=== PATIENT | male | born 1965 | race African-American/Black ===

== ENCOUNTER 2016-11-26 08:01 | Emergency (ER) | payer BC ==
[2015-05-05 13:36] VITALS: BMI 32.2
[~2016-11-26 08:01] MED LIST: NEXIUM40 MG PO
[2016-11-26 08:56] LABS: BASOPHILS 0.2 % (0.0-2.0); EOSINOPHILS 0.1 % (0-7); HEMATOCRIT 48.4 % (42.0-54.0); HEMOGLOBIN 16.8 g/dL (13.5-17.5); IMMATURE GRANULOCYTES 0.1 % (0-5); LYMPHOCYTES 21.2 % (15-50); MCH 28.7 pg (26.0-34.0); MCHC 34.7 g/dL (31.0-37.0); MCV 82.6 fL (80.0-100.0); MEAN PLATELET VOLUME 10.3 fL (7.4-10.4); MONOCYTES 9.3 % (2-11); NEUTROPHILS 69.1 % (40-80); RBC 5.86 10x6/uL (4.20-6.10); RDW 14.2 % (11.5-14.5); WBC 8.5 10x3/uL (4.8-10.8)
[2016-11-26 09:10] LABS: PLATELET COUNT 332 10x3/uL (130-400)
[2016-11-26 10:15] LABS: ALBUMIN 3.6 g/dL (3.4-5.0); ALKALINE PHOSPHATASE 75 U/L (46-116); CALC OSMOLALITY 262 mosm/kg (275-300); CALCIUM 8.9 mg/dL (8.5-10.1); CARBON DIOXIDE 24.8 mmol/L (21.0-32.0); CHLORIDE - SERUM 95 mmol/L (98-107); GLUCOSE 110 mg/dL (74-106); LIPASE 16 U/L (73-393); PROTEIN - SERUM 9.8 g/dL (6.4-8.2); SODIUM 127 mmol/L (136-145); UREA NITROGEN 33 mg/dL (7-18); eGFR NON AFRICAN AMERICAN 84 mL/min (90-120)
[2016-11-26 10:27] LABS: APPEARANCE CLEAR (CLEAR); BILIRUBIN NEGATIVE (NEGATIVE); COLOR YELLOW (YELLOW); GLUCOSE NEGATIVE (NEGATIVE); KETONE MODERATE mg/dL (NEGATIVE); LEUKOCYTE ESTERASE NEGATIVE (NEGATIVE); NITRITE NEGATIVE (NEGATIVE); PROTEIN 1+ mg/dL (NEGATIVE); SPECIFIC GRAVITY 1.005 (1.005-1.020); UROBILINOGEN NORMAL (NORMAL)
[2016-11-26 10:28] LABS: BACTERIA FEW /hpf (NONE SEEN); EPITHELIAL CELLS OCC /hpf (0-5); MUCUS <1+ /lpf (NONE SEEN); RED CELLS - URINE OCC /hpf (0-5); WHITE CELLS - URINE 0-5 /hpf (0-5)
[2016-11-26 10:33] LABS: ALT (SGPT) 19 U/L (10-68); BILIRUBIN - TOTAL 0.59 mg/dL (0.2-1.3)
== END 2016-11-26 13:31 | disposition home or self-care (01) ==
LOC: D.ER 08:01
PROVIDERS: Emergency Medicine
DX: R10.13 Epigastric pain (principal); R11.10 Vomiting, unspecified; I10 Essential (primary) hypertension; K21.9 Gastro-esophageal reflux disease without esophagitis

== ENCOUNTER 2017-05-07 16:00 | Emergency (ER) | payer BC ==
[2015-05-05 13:36] VITALS: BMI 32.2
[2017-05-07 17:00] LABS: BASOPHILS 0.2 % (0-2); EOSINOPHILS 0.1 % (0-7); HEMATOCRIT 50.2 % (42.0-54.0); HEMOGLOBIN 17.3 g/dL (13.5-17.5); IMMATURE GRANULOCYTES 0.3 % (0-5); LYMPHOCYTES 14.2 % (15-50); MCH 29.2 pg (26.0-34.0); MCHC 34.5 g/dL (31.0-37.0); MCV 84.7 fL (80.0-100.0); MEAN PLATELET VOLUME 10.3 fL (7.4-10.4); MONOCYTES 8.3 % (2-11); NEUTROPHILS 76.9 % (40-80); RBC 5.93 10x6/uL (4.20-6.10); WBC 12.4 10x3/uL (4.8-10.8)
[2017-05-07 17:01] LABS: PLATELET COUNT 256 10x3/uL (130-400)
[2017-05-07 17:26] LABS: AMYLASE - SERUM 63 U/L (25-115); LIPASE 121 U/L (73-393)
[2017-05-07 18:08] LABS: ALBUMIN 4.3 g/dL (3.4-5.0); ANION GAP 16.6 mmol/L (8-16); BILIRUBIN - TOTAL 0.59 mg/dL (0.2-1.3); CARBON DIOXIDE 25.3 mmol/L (21.0-32.0); CREATININE - SERUM 1.8 mg/dL (0.6-1.3); POTASSIUM - SERUM 3.9 mmol/L (3.5-5.1); PROTEIN - SERUM 9.4 g/dL (6.4-8.2)
== END 2017-05-07 20:45 | disposition home or self-care (01) ==
LOC: D.ER 16:00
PROVIDERS: Emergency Medicine; Nurse Practitioner Acute Care
DX: R10.9 Unspecified abdominal pain (principal); K21.9 Gastro-esophageal reflux disease without esophagitis; F17.200 Nicotine dependence, unspecified, uncomplicated

== ENCOUNTER 2017-05-08 08:46 | Emergency (ER) | payer BC ==
[2015-05-05 13:36] VITALS: BMI 32.2
[2017-05-08 10:58] LABS: ALBUMIN 3.8 g/dL (3.4-5.0); ANION GAP 8.8 mmol/L (8-16); BILIRUBIN - TOTAL 0.53 mg/dL (0.2-1.3); CALCIUM 8.4 mg/dL (8.5-10.1); CARBON DIOXIDE 29.8 mmol/L (21.0-32.0); POTASSIUM - SERUM 3.6 mmol/L (3.5-5.1); PROTEIN - SERUM 8.4 g/dL (6.4-8.2)
[2017-05-08 11:01] LABS: CREATININE - SERUM 1.3 mg/dL (0.6-1.3)
[2017-05-08 11:50] LABS: APPEARANCE CLEAR (CLEAR); BILIRUBIN NEGATIVE (NEGATIVE); COLOR YELLOW (YELLOW); GLUCOSE NEGATIVE (NEGATIVE); KETONE MODERATE mg/dL (NEGATIVE); LEUKOCYTE ESTERASE TRACE (NEGATIVE); NITRITE NEGATIVE (NEGATIVE); PROTEIN 1+ mg/dL (NEGATIVE)
[2017-05-08 11:51] LABS: BACTERIA FEW /hpf (NONE SEEN); EPITHELIAL CELLS 0-5 /hpf (0-5); MUCUS <1+ /lpf (NONE SEEN); WHITE CELLS - URINE 0-5 /hpf (0-5)
== END 2017-05-08 14:06 | disposition home or self-care (01) ==
LOC: D.ER 08:46
PROVIDERS: Emergency Medicine
DX: K21.9 Gastro-esophageal reflux disease without esophagitis (principal); R11.2 Nausea with vomiting, unspecified

== ENCOUNTER → 2018-01-03 17:16 | Outpatient (CLI) | payer BC ==
[2015-05-05 13:36] VITALS: BMI 32.2
== END | disposition home or self-care (01) ==
LOC: D.RAD 17:16
DX: M54.2 Cervicalgia (principal); M54.5 Low back pain

== ENCOUNTER 2018-01-03 17:44 | Emergency (ER) | payer BC ==
[2015-05-05 13:36] VITALS: BMI 32.2
== END 2018-01-03 20:59 | disposition home or self-care (01) ==
LOC: D.ER 17:44
DX: S16.1XXA Strain of muscle, fascia and tendon at neck level, initial encounter (principal); V43.52XA Car driver injured in collision with other type car in traffic accident, initial encounter; Y93.89 Activity, other specified; Y92.410 Unspecified street and highway as the place of occurrence of the external cause; S39.012A Strain of muscle, fascia and tendon of lower back, initial encounter; K21.9 Gastro-esophageal reflux disease without esophagitis